=== PATIENT | female | born 1970 | race Caucasian/White ===

== ENCOUNTER 2024-01-07 07:23 | Day surgery (SDC) | payer OTHER ==
[~2024-01-07] VITALS: Ht 160 cm; Wt 78.5 kg
[2024-01-07] MEDS ORDERED: MEPERIDINE 100 MG INJ. 100 MG/ML VIAL ONE (08:10)
[2024-01-07] MEDS ORDERED: MIDAZOLAM HCL 5 MG/5 ML VIAL ONE (08:10)
[2024-01-07] MEDS ORDERED: BENZOCAINE 20% 0.5mL UD SPRAY MM ONE (09:35)
[2024-01-07 12:21] VITALS: O2SAT 98
[2024-01-07 19:17] VITALS: BP_SYST 84; PULSE 71; RESP 17
== END 2024-01-07 11:10 | disposition home or self-care (01) ==
LOC: SDS 07:23 → SMU 07:29 → SDS 11:10
PROVIDERS: ATTEND Internal Medicine
DX: K59.00 Constipation, unspecified (principal); K29.50 Unspecified chronic gastritis without bleeding; K63.5 Polyp of colon; B96.81 Helicobacter pylori [H. pylori] as the cause of diseases classified elsewhere; K21.9 Gastro-esophageal reflux disease without esophagitis; R12 Heartburn; R10.9 Unspecified abdominal pain; K57.30 Diverticulosis of large intestine without perforation or abscess without bleeding; K64.8 Other hemorrhoids; I10 Essential (primary) hypertension; F41.9 Anxiety disorder, unspecified; E78.5 Hyperlipidemia, unspecified; Z79.899 Other long term (current) drug therapy
CPT/HCPCS: 45385; 43239; 99152; 88305; 88312; 88313; 99153; G0378; J2250; J2175